=== PATIENT | female | born 2000 | race Two or more races ===

== ENCOUNTER 2023-03-27 05:28 | Inpatient (IN) | payer OTHER ==
[~2023-03-27] VITALS: Ht 160 cm; Wt 2.7 kg
[2023-03-27] MEDS ORDERED: PRENATAL 19 TA1 EAC2 PO (07:12)
[2023-03-27] MEDS ORDERED: INTEGRA PLUS C1 EACH PO (07:13)
[2023-03-27] MEDS ORDERED: LEVO-T50 MCG PO (07:14)
[2023-03-29] MEDS ORDERED: IBU800 MG PO (08:45)
[2023-03-29] MEDS ORDERED: SURFAK240 M1 PO (08:45)
[2023-03-29] MEDS ORDERED: INTEGRA PLUS C1 EACH PO (08:45)
== END 2023-03-29 14:17 | disposition home or self-care (01) | DRG 788 ==
LOC: LDR 05:28 → O/R 18:30 → OB/GYN 21:27
PROVIDERS: ADMIT Specialist; ATTEND Specialist
PROC: 3E033VJ Introduction of Other Hormone into Peripheral Vein, Percutaneous Approach (ICD-10-PCS; 2023-03-27)
PROC: 3E0P7VZ Introduction of Hormone into Female Reproductive, Via Natural or Artificial Opening (ICD-10-PCS; 2023-03-27)
PROC: 4A1HXCZ Monitoring of Products of Conception, Cardiac Rate, External Approach (ICD-10-PCS; 2023-03-27)
PROC: 10D00Z1 Extraction of Products of Conception, Low, Open Approach (ICD-10-PCS; principal; 2023-03-27 17:15)
DX: O82 Encounter for cesarean delivery without indication (principal); Z3A.39 39 weeks gestation of pregnancy; Z37.0 Single live birth; Z20.822 Contact with and (suspected) exposure to COVID-19